=== PATIENT | female | born 1965 | race Caucasian/White ===

== ENCOUNTER → 2016-09-07 | Outpatient (CLI) | payer MEDICARE ==
[~2016-09-07] MED LIST: ABIL15TA2 PO; ALPR0.5T3 PO; ALPR1TAB3 PO; CALC1TAB12 PO; CYMB30CA PO; FISH120014 PO; FLUT1INH7 INH; GLUC500T4 PO; LEVE500 PO; LEVO137T2 PO; MELO-1 PO; MONT10TA2 PO; MULTTAB67 PO; ZOCO40TA PO; [UNRECOGNIZED DRUG - CODE] PO
--- NOTE | 2016-09-07 13:00 | RADRPT ---
EXAM DATE/TIME: 09/07/2016 12:47 [place] COMPARISON: No previous studies available for comparison. INDICATIONS : Evaluate for pneumonia, pneumothorax, or communicable disease. Pre op for total knee replacement. MEDICAL HISTORY : Chronic obstructive pulmonary disease. 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 ENCOUNTER: Initial ACUITY: 1 day PAIN SCORE: 0/10 LOCATION: Bilateral chest FINDINGS: PA and lateral views of the chest demonstrate small bilateral pleural effusions and bibasilar densiti es. Heart normal in size. The cardiomediastinal contours are unremarkable. Osseous structures are i ntact. CONCLUSION: Small bilateral pleural effusions and bibasilar densities likely atelectasis. Gera Redman MD on September 07, 2016 at 12:58 Board Certified Radiologist. This report was verified electronically.
[2016-09-07 13:33] LABS: AUTOMATED NEUTROPHIL # 6.2 TH/MM3 (1.8-7.7); BASOPHIL # 0.1 TH/MM3 (0-0.2); BASOPHIL % 1.2 % (0.0-2.0); EOSINOPHIL # 0.2 TH/MM3 (0-0.4); EOSINOPHIL % 1.9 % (0.0-4.0); HEMATOCRIT 38.8 % (35.0-46.0); HEMO FLAGS DIFF FINAL; LYMPH % 23.8 % (9.0-44.0); LYMPHOCYTE # 2.2 TH/MM3 (1.0-4.8); MEAN CELL VOLUME 95.2 FL (80.0-100.0); MEAN CORPUSCULAR HEMOGLOBIN 33.1 PG (27.0-34.0); MEAN CORPUSCULAR HGB CONC 34.8 % (32.0-36.0); MONO % 6.7 % (0.0-8.0); NEUT % 66.4 % (16.0-70.0); PLATELET COUNT 373 TH/MM3 (150-450); RED BLOOD COUNT 4.08 MIL/MM3 (4.00-5.30); RED CELL DISTRIBUTION WIDTH 13.3 % (11.6-17.2); WHITE BLOOD COUNT 9.4 TH/MM3 (4.0-11.0)
[2016-09-07 13:40] LABS: APTT (PATIENT) 28.2 SEC (24.3-30.1); INTERNATIONAL NORMALIZED RATIO 0.9 RATIO; PROTHROMBIN TIME - PATIENT 9.8 SEC (9.8-11.6)
[2016-09-07 13:44] LABS: BLOOD, URINE NEG (NEG); GLUCOSE,URINE NEG (NEG); KETONE, URINE NEG (NEG); NITRITE,URINE NEG (NEG); SQUAMOUS EPITHELIAL CELL URINE <1 /hpf (0-5); URINE COLOR LIGHT-YELLOW (YELLW/STRAW)
[2016-09-07 13:45] LABS: COMMENT (UR) CULT NOT INDICATED; CULTURE IF INDICATED CULT NOT INDICATED
[2016-09-07 13:51] LABS: WESTERGREN SEDIMENTATION RATE 44 mm/hr (0-20)
[2016-09-07 13:56] LABS: ALKALINE PHOSPHATASE 87 U/L (45-117); ALT (GPT) 27 U/L (10-53); ANION GAP 7 MEQ/L (5-15); AST (GOT) 16 U/L (15-37); BICARBONATE 29.7 MEQ/L (21.0-32.0); BLOOD UREA NITROGEN 14 MG/DL (7-18); CHLORIDE 103 MEQ/L (98-107); GLOMERULAR FILTRATION RATE 54 ML/MIN (>89); GLUCOSE,FASTING 79 MG/DL (74-99); POTASSIUM 3.7 MEQ/L (3.5-5.1); SODIUM (NA) 140 MEQ/L (136-145); TOTAL BILIRUBIN ADULT 0.4 MG/DL (0.2-1.0)
--- NOTE | 2016-09-08 18:30 | EKG ---
Date Performed: 09/07/2016 Time Performed: 12:25:00 PTAGE: 51 years EKG: Sinus rhythm WITH SINUS ARRHYTHMIA CONSIDER INFERIOR MYOCARDIAL INFARCTION, age indeterminate ABNORMAL ECG NO PREVIOUS TRACING DOCTOR: Hosea Mendez Interpretating Date/Time 09/08/2016 18:30:20
== END ==
LOC: CPRE 11:24
PROVIDERS: ATTEND Orthopaedic Surgery Sports Medicine
DX: Z01.810 Encounter for preprocedural cardiovascular examination (principal); Z01.811 Encounter for preprocedural respiratory examination; Z01.812 Encounter for preprocedural laboratory examination; Z01.818 Encounter for other preprocedural examination; Z79.01 Long term (current) use of anticoagulants; Z96.60 Presence of unspecified orthopedic joint implant; M25.50 Pain in unspecified joint
CPT/HCPCS: 36415; 71020; 80053; 81001; 85025; 85610; 85652; 85730; 93005